=== PATIENT | male | born 1955 | race Caucasian/White ===

== ENCOUNTER → 2019-10-10 14:34 | Outpatient (BNVA) | payer BC, SELFPAY | PROVIDERS: Family Provider Family Medicine; Visit Provider Nurse Practitioner Family | DX: Z11.59 Encounter for screening for other viral diseases (principal); J34.89 Other specified disorders of nose and nasal sinuses; R53.83 Other fatigue | CPT/HCPCS: 87635 ==

== ENCOUNTER 2019-11-24 13:37 | Outpatient (CLI) | payer BC, SELFPAY ==
--- NOTE | 2019-11-24 | USCV_ITS ---
Grady Israel Age: 63 Gender: M : 1955 Exam Date: 11/24/2019 14:18 Ordering Phys: Manohar Cordero M.D ([email or web address]) Technologist: Jeronimo Crane Exam Location: [facility] [place] Indication: CP BP: 130 / 72 HR: 52 Rhythm: Sinus Technical Quality: Adequate MEASUREMENTS (Male / Female) Normal Values 2D ECHO LV Diastolic Diameter PLAX 4.8 cm 4.2 - 5.9 / 3.9 - 5.3 cm LV Systolic Diameter PLAX 2.8 cm IVS Diastolic Thickness 1.5 cm 0.6 - 1.0 / 0.6 - 0.9 cm IVS Systolic Thickness 1.4 cm LVPW Diastolic Thickness 1.4 cm 0.6 - 1.0 / 0.6 - 0.9 cm LVPW Systolic Thickness 1.5 cm LVOT Diameter 2.2 cm LV Ejection Fraction 2D Teich 72.3 % LV Ejection Fraction MOD 2C 70.2 % LV Ejection Fraction 2C AL 68.7 % LA Diameter 4.1 cm LA Width 3.9 cm LA Height 4.0 cm RA Width 3.2 cm RA Height 4.7 cm Aorta at Sinotubular Diameter 1.4 cm M-MODE LV Diastolic Diameter MM 5.6 cm 4.2 - 5.9 / 3.9 - 5.3 cm LV Systolic Diameter MM 3.4 cm LV Ejection Fraction MM Teich 68.4 % IVS Diastolic Thickness MM 1.3 cm 0.6 - 1.0 / 0.6 - 0.9 cm IVS Systolic Thickness MM 2.1 cm LVPW Diastolic Thickness MM 1.1 cm 0.6 - 1.0 / 0.6 - 0.9 cm LVPW Systolic Thickness MM 1.6 cm RV Diastolic Diameter MM 2.2 cm Aortic Annulus Diameter 4.0 cm LA Ao Ratio MM 1.0 DOPPLER AV Peak Velocity 139.0 cm/s LVOT Peak Velocity 117.0 cm/s AV Area Cont Eq vti 3.1 cm squared AV Area Cont Eq pk 3.1 cm squared MV Area PHT 5.0 cm squared Mitral E to A Ratio 1.3 MV E' Velocity 10.0 cm/s Mitral E to MV E' Ratio 9.9 Mitral E to LV E' Lateral Ratio 7.7 Mitral E to LV E' Septal Ratio 13.9 TR Peak Velocity 147.0 cm/s TR Peak Gradient 8.7 mmHg TV Peak E Velocity 80.0 cm/s Right Atrial Pressure 3.0 mmHg Pulmonary Artery Systolic Pressu 11.6 mmHg PV Peak Velocity 113.0 cm/s FINDINGS Left Ventricle Normal left ventricular size, systolic function and wall thickness, with no regional wall motion abnormalities. LVEF is 50-55 %. Normal left ventricular wall thickness. Diastolic dysfunction is present. Right Ventricle The right ventricle is normal in size and function. Right Atrium The right atrium is normal in size. Left Atrium The left atrium is mildly enlarged. Mitral Valve Not well visualized however grossly is normal. There is no mitral regurgitation. Aortic Valve Not well visualized, grossly normal. No significant aortic stenosis. There is no aortic regurgitation. Tricuspid Valve Not well visualized. Insufficient TR jet to calculate RVSP. Pulmonic Valve Not well visualized Pericardium Normal pericardium without effusion. Aorta Normal ascending aorta dimension. CONCLUSIONS LV systolic function is normal with EF of 50 to 55%. Diastolic dysfunction is noted. No significant valvular heart disease. However valves could not be well visualized because of poor quality study. Compared to prior study from 12/21/2017, no significant changes are noted. Manohar Cordero MD (Electronically Signed) Final Date: 28 November 2019 12:10 S
[2019-11-24] MEDS: perflutren protein-a microsphr 0.22 mg/mL SDV 3 mL 2 ML IV (14:53)
== END 2019-11-24 13:38 | disposition home or self-care (01) ==
LOC: US 13:39
PROVIDERS: PCP Family Medicine; Visit Provider Internal Medicine
DX: I50.9 Heart failure, unspecified (principal); R07.9 Chest pain, unspecified; I51.81 Takotsubo syndrome
CPT/HCPCS: C8929; Q9956

== ENCOUNTER 2019-12-23 16:12 | Emergency (ER) | payer BC, SELFPAY ==
[2019-12-23] VITALS (11 sets, daily range): BP systolic 124–163; BP diastolic 79–104; PULSE 72–94; RESP 14–26; TEMP 36.6; O2SAT 96–100; BMI 40.3
--- NOTE | 2019-12-23 17:03 | XRR_ITS ---
PROCEDURE INFORMATION: Exam: XR Right Tibia and Fibula Exam date and time: 12/23/2019 5:15 PM Age: 64 years old Clinical indication: Injury or trauma; Other: Tractor accident; Fracture, traumatic; Open fracture, severity classification not provided; Not specified; Patient HX: Lower ext FX, right ankle deformity; Additional info: Lower ext FX dislocation TECHNIQUE: Imaging protocol: XR Right tibia and fibula. Views: 2 views. COMPARISON: No relevant prior studies available. FINDINGS: Bones/joints: Bimalleolar fracture dislocation of the right ankle. Proximal tibia and proximal fibula appear intact. Soft tissues: There is distal soft tissue swelling. XR/XR tibia fibula RT 2V [id number] IMPRESSION: Bimalleolar fracture dislocation of the right ankle.
--- NOTE | 2019-12-23 17:03 | XRR_ITS ---
PROCEDURE INFORMATION: Exam: XR Right Ankle Exam date and time: 12/23/2019 5:15 PM Age: 64 years old Clinical indication: Injury or trauma; Other: Tractor accident; Fracture, traumatic; Closed fracture; Not specified; Patient HX: FX, right ankle deformity TECHNIQUE: Imaging protocol: XR Right ankle. Views: 3 or more views. COMPARISON: No relevant prior studies available. FINDINGS: Bones/joints: Fracture of the distal shaft of the fibula, with marked displacement/angulation of the distal fragment. Fracture of the medial malleolus of the distal tibia, with complete separation of the tibiotalar articulation. The talus and the calcaneus appear grossly intact as demonstrated. Soft tissues: Unremarkable. XR/XR ankle RT min 3V* [id number] IMPRESSION: Bimalleolar fracture/dislocation of the right ankle.
[2019-12-23] MEDS: ondansetron 2 mg/ML SDV 2 mL 4 MG IVP (17:06)
[2019-12-23] MEDS: morphine 4 mg/mL SDV 1 mL IVP (17:07)
--- NOTE | 2019-12-23 17:09 | W.ED.EXTPRO ---
Documented by User: RYANN Dee 12/23/19 19:16 HPI - Extremity Problem General: Chief complaint: Extremity Injury, Lower Stated complaint: Right leg/tractor accident Time Seen by Provider: 12/23/19 17:00 History of Present Illness: HPI Narrative: patient presents with obvious deformity to right ankle. distal pulses intact. extroversion of foot noted. incident occurred approximately 2 hours before arrival. History of CHF, diabetes mellitus. MD Complaint: extremity pain Onset (ago): hour(s) Review of Systems General: Reports: 10 or more systems reviewed and unremarkable except in HPI and below Musc: Reports: joint pain Physical Exam Const: COMMON NORMALS: no acute distress and patient oriented x3 GENERAL APPEARANCE: cooperative HENMT: COMMON NORMALS: normocephalic and Normal external nose present HEAD & SCALP: normal to inspection and normocephalic NOSE: Normal external nose present Eye: GENERAL EYE: appearance normal, both eyes and all related structures Neck/C-Spine: COMMON NORMALS: full ROM Chest: COMMONS NORMALS: normal inspection of the chest Resp: COMMON NORMALS: normal respiratory effort EFFORT & INSPECTION: Yes able to speak in complete sentences Cardio: COMMON NORMALS: regular rate and regular rhythm RATE: regular rate RHYTHM: regular rhythm GI: COMMON NORMALS: non-tender Back/Pelvis: COMMON NORMALS: thoracic and lumbar spine normal to inspection Extremity: NARRATIVE EXTREMITY EXAM: deformity of right ankle, pulse intact distally. patient reports spasms in leg, Neuro: COMMON NORMALS: patient oriented x3 and moves all extremities Psych: COMMON NORMALS: mental status grossly normal and cooperative Skin: COMMON NORMALS: no rashes or lesions noted GENERAL SKIN EXAM: no rashes or lesions noted Procedures Orthopedic Fracture Reduction Fracture #1: Side: right Fracture Reduction Location: tibia and fibula Analgesia: procedural sedation Technique: direct manipulation Post Reduction X-rays Demonstrate: acceptable reduction Post-reduction neuro exam: intact Post-reduction vascular exam: intact Splint Applied: Yes Patient Tolerated Procedure: well Additional Comments: Dr. Girard present and performed reduction with my assistance, [email or web address] Orthopedic Splinting/Casting Injury #1: Side: right Lower Extremity Injury Location: ankle Lower Extremity Immobilizer: posterior splint and stirrup splint Other Orthopedic Equipment: crutches Course ED course: 1800, reviewed with Dr. Girard whom agreed to reduce and continue care of patient. 185, reduction performed per Dr. Girard and myself under etomidate and versed. 1909, Dr. Girard discussed with Dr. Andres, is to f/u in office Thursday Vital Signs: Vital signs: Vital Signs Temperature 97.9 F 12/23/19 16:38 Pulse Rate 72 12/23/19 19:43 Respiratory Rate 18 12/23/19 19:43 Blood Pressure 129/79 12/23/19 19:43 Pulse Oximetry 96 12/23/19 19:43 MDM - Extremity (Nontraumatic) MDM Narrative: Medical decision making narrative: Patient comes in today for injury to the right ankle. Exam notes obvious deformities extroversion of the ankle. Neurovascular was intact. Differential diagnosis neurovascular compromise, fracture dislocation. X-ray noted a fracture dislocation of the fibula and tibia. Bimalleolar fracture was noted. Dr. Girard was consulted and under conscious sedation we reduce the fracture and splinted. Postreduction x-ray did show improvement in overall positioning. Pulses and neurovascular remains intact. Dr. Girard talk to Dr. Andres who agreed to see patient Thursday Discharge Plan Discharge Patient Disposition: Home Clinical Impression: Ankle fracture Qualifiers: Encounter type: initial encounter Fracture type: closed Laterality: right Qualified Code(s): S82.891A - Other fracture of right lower leg, initial encounter for closed fracture Condition: Stable Prescriptions: New hydrocodone-acetaminophen 10-325 mg tablet 1 tab PO Q6H PRN (Reason: pain (scale score 7-10)) Qty: 14 RF: 0 No Action carvedilol 3.125 mg tablet 3.125 mg PO BID Qty: 90 RF: 3 lisinopril 5 mg tablet 5 mg PO DAILY Qty: 90 RF: 3 spironolactone 25 mg tablet 25 mg PO DAILY Qty: 90 RF: 3 Discharge Orders: Discharge Order (Routine); Ordered 12/23/19 Ordered By: Grady Schwarz Referrals: Fabricio Meraz DO [Primary Care Provider] - Discharge Diet: Usual diet Discharge Activity: Limit activity as instructed and Use walker/crutches as instructed Patient Instructions: Splint Care (ED) Activity Restrictions/Additional Instructions: Follow-up with Dr. Andres on Thursday at the [facility] orthopedic clinic. No weightbearing to the right ankle. Keep splint clean and dry. Use crutches for ambulation. Use acetaminophen and ibuprofen for pain control. Use hydrocodone for breakthrough pain or uncontrolled pain. If you are not unable to control pain at home return to the emergency room for reevaluation. Discharge Date/Time: 12/23/19 19:45 Coding Level of Care Code ED University Administrator for Dee Dee Fwd Exam Comprehensive Documented by User: Colin Girard DO 12/23/19 23:57 HPI - Extremity Problem General: Chief complaint: Extremity Injury, Lower Stated complaint: Right leg/tractor accident Time Seen by Provider: 12/23/19 17:00 Procedures Procedural Sedation Indication: fracture/dislocation reduction ASA Class: II Preparation: panel monitor applied, pulse oximeter, supplemental O2 applied, suction/airway equipment at bedside and IV secured Midazolam: IV Midazolam dose (mg): 2 IV Etomidate dose (mg): 20 Patient Tolerated Procedure: well and no complications Complications: none Course Vital Signs: Vital signs: Vital Signs Temperature 97.9 F 12/23/19 16:38 Pulse Rate 72 12/23/19 19:43 Respiratory Rate 18 12/23/19 19:43 Blood Pressure 129/79 12/23/19 19:43 Pulse Oximetry 96 12/23/19 19:43 MDM - Extremity (Nontraumatic) MDM Narrative: Medical decision making narrative: Patient originally seen by RYANN Sharma. I agree with his history, evaluation, work-up and treatment. Procedural sedation was completed by me as well as assistance with close reduction and splint placement without complication. Spoke with orthopedics. He will see the patient on Thursday Discharge Plan Discharge Patient Disposition: Home Clinical Impression: Ankle fracture Qualifiers: Encounter type: initial encounter Fracture type: closed Laterality: right Qualified Code(s): S82.891A - Other fracture of right lower leg, initial encounter for closed fracture Condition: Stable Prescriptions: New hydrocodone-acetaminophen 10-325 mg tablet 1 tab PO Q6H PRN (Reason: pain (scale score 7-10)) Qty: 14 RF: 0 No Action carvedilol 3.125 mg tablet 3.125 mg PO BID Qty: 90 RF: 3 lisinopril 5 mg tablet 5 mg PO DAILY Qty: 90 RF: 3 spironolactone 25 mg tablet 25 mg PO DAILY Qty: 90 RF: 3 Discharge Orders: Discharge Order (Routine); Ordered 12/23/19 Ordered By: Grady Schwarz Referrals: Fabricio Meraz DO [Primary Care Provider] - Discharge Diet: Usual diet Discharge Activity: Limit activity as instructed and Use walker/crutches as instructed Patient Instructions: Splint Care (ED) Activity Restrictions/Additional Instructions: Follow-up with Dr. Anders on Thursday at the [facility] orthopedic clinic. No weightbearing to the right ankle. Keep splint clean and dry. Use crutches for ambulation. Use acetaminophen and ibuprofen for pain control. Use hydrocodone for breakthrough pain or uncontrolled pain. If you are not unable to control pain at home return to the emergency room for reevaluation. Discharge Date/Time: 12/23/19 19:45 Coding Level of Care Code ED University Administrator for [employer] Fwd Exam Comprehensive
[2019-12-23] MEDS: midazolam 1 mg/mL INJ 2 mL 2 MG IVP (18:40)
--- NOTE | 2019-12-23 18:53 | XRR_ITS ---
PROCEDURE INFORMATION: Exam: XR Right Ankle Exam date and time: 12/23/2019 6:54 PM Age: 64 years old Clinical indication: Injury or trauma; Other: Tractor accident; Fracture, traumatic; Open fracture, severity classification not provided; Ankle; Right; Not specified; Patient HX: Post reduction TECHNIQUE: Imaging protocol: XR Right ankle. Views: 1 or 2 views. COMPARISON: CR XR ankle RT min 3V* [id number] 12/23/2019 5:16 PM FINDINGS: Limitations: Immobilization device overlies the area of interest, obscuring fine detail. Bones/joints: Status post reduction of bimalleolar fracture dislocation, right ankle. Mild, 7 mm residual offset of the fibular fracture fragments noted. Residual 3 mm separation of the medial malleolar fracture fragments. Approximate 10 mm residual anterior to posterior displacement of the tibiotalar articulation. Soft tissues: Soft tissue swelling noted. XR/XR ankle RT 2V [id number] IMPRESSION: 1. Immobilization device overlies the area of interest, obscuring fine detail. 2. Status post reduction of bimalleolar fracture dislocation, right ankle. Significant reduction in fracture fragment displacement when compared to the prior study.
--- NOTE | 2019-12-23 18:58 | PC.NURSE ---
Conscious sedation for Right Ankle reduction: 1837- This RN, Tina Schwarz MILLING OPERATOR and Dr. Girard at bedside for sedation. Time out performed at this time. VS: 124/82, HR73, 99%, R20. Pt on 6L O2 via NC and continuous cardiac monitoring. Consent has been signed by patient. Ambu bag at bedside. 1840- 2mg Versed administered. Pt appears relaxed and pain level is tolerable as reported by patient. VS: 134/83, HR77, 99%, R14 1843- 20mg Etomidate administered. Pt responds well, unarousable shortly after administration. VS: 129/84, HR94, 100%, R26. 1844- R-ankle reduced by Dr. Girard. Skin color remains pink, cap refill<3s, pt retains normal pedal pulse. 1846- Pt appears calm and in no distress. VSS- 148/104, HR82, 97%, R19 1849- Splint applied- Posterior short-leg w/ stirrup. VS 161/104, R18, 98%, HR81 1851-Post Procedure, pt is waking up, appears oriented, able to answer questions appropriately. Denies pain at this time. VS- HR72, 163/87, 99%, R16 1853- O2 turned down from 6L to 4L. Pt a/ox4 and has returned to a pre-procedure level of sedation. This RN brings pt spouse back into room. Pt denies pain and reports no need for pain medication at this time. He sts his ankle feels better. End of sedation documentation.
[2019-12-23] MEDS: fentaNYL 50 mcg/mL INJ 2mL 100 MCG IVP (19:20)
--- NOTE | 2019-12-26 10:14 | DCPLANNER ---
field insurance sales manager had message to schedule a follow up appointment for patient with Dr. Andres, with ortho. field insurance sales manager called the ortho clinic, spoke with Pat, gave clinic patients information. A follow up appointment was scheduled for Thursday, December 26, 2019 at 2:[address] Andres. Clinic will call patient with appointment information.
--- NOTE | 2019-12-29 15:22 | DCPLANNER ---
Patient had a follow up appointment scheduled for 12.26.19 with ortho - patient did attend appointment.
== END 2019-12-23 19:45 | disposition home or self-care (01) ==
PROVIDERS: Emergency Provider Emergency Medicine; PCP Family Medicine
DX: S82.891A Other fracture of right lower leg, initial encounter for closed fracture (principal); S82.841A Displaced bimalleolar fracture of right lower leg, initial encounter for closed fracture; I50.9 Heart failure, unspecified; E11.9 Type 2 diabetes mellitus without complications; X58.XXXA Exposure to other specified factors, initial encounter
CPT/HCPCS: 12345; 27810; 73590; 73600; 73610; 96374; 96375; 99282; 99284; J2250; J2270; J2405; J3010; J3490

== ENCOUNTER → 2019-12-26 16:18 | Outpatient (BNVA) | payer BC, SELFPAY | PROVIDERS: PCP Family Medicine; Visit Provider Orthopaedic Surgery | DX: Z11.59 Encounter for screening for other viral diseases (principal) | CPT/HCPCS: 87635 ==

== ENCOUNTER 2019-12-28 08:44 | Day surgery (SDC) | payer BC, SELFPAY ==
[2019-12-27 08:45] VITALS: BMI 39.9
[2019-12-28] VITALS (7 sets, daily range): BP systolic 112–142; BP diastolic 62–91; PULSE 60–75; RESP 16–18; TEMP 36.4–37; O2SAT 93–99
--- NOTE | 2019-12-28 | XR_ITS ---
WS: [id number] Exam: XR ankle RT min 3V* [id number] Date/Time of Exam: 12/28/2019 12:00 AM Reason For Exam: ORIF Right Ankle Comparison 12/23/2019. AP and lateral postoperative C-arm images of the right ankle are provided for evaluation. 2. Screws stabilize a fracture of the medial malleolus in anatomic alignment. There is also plate and screw fixation involving a fracture of the lower fibula which is in excellent position for healing. There is a cable fixation of the lower fibula and tibia. The ankle mortise is been restored since pre vious exam. XR/XR ankle RT min 3V* [id number] IMPRESSION: 1. Satisfactory internal orthopedic fixation involving fractures of the medial malleolus and the lower fibula as noted above.
--- NOTE | 2019-12-28 | SCC_ITS ---
Procedure Done: ORIF Bimalleolar ankle on right with repair of sydesmotic injury 54.6 seconds of fluoroscopic guidance, for a cumulative dose of 1.59 mGy, was provided to Dr. Andres by the radiology department. C-arm images of the RIGHT ankle were saved for the patient's permanent record. ABRAN
[2019-12-28 09:35] LABS: Glucose Point of Care 108 mg/dL (70-110)
[2019-12-28] MEDS: sodium chloride 0.9% 1,000 ML 30 ML IV (09:43)
--- NOTE | 2019-12-28 09:51 | ANES.PREANE2 ---
Pre-Anesthetic Assessment Pre-Anesthetic Assessment: Height/Weight: Height 1.73 m Weight 119.295 kg Temp Pulse Resp BP Pulse Ox 97.8 F 75 18 142/91 97 12/28/19 09:09 12/28/19 09:09 12/28/19 09:09 12/28/19 09:09 12/28/19 09:09 Preop Diagnosis: Right ankle fractur Proposed Procedure: Operation Date: 12/28/19 10:45 Proposed Procedures p ORIF Ankle 79650 0232T T14.8XXA(Right) - Zachery Andres, DO Familial anesthetic complications: I'm really sensitive, i get lighted headed and passed out,but aiyana done fine since Was Beta Karly taken within 24 hours: Yes Last intake: Intake Last Liquid Date 12/27/19 Last Liquid Time 23:00 Last Solid Date 12/27/19 Last Solid Time 17:00 Social: Social History: No alcohol and No tobacco Exam: Pre-Anes Outpt Exam: alert, oriented x 3, clear to auscultation bilaterally and regular rate & rhythm Airway: Cervical ROM: WNL MP: 3 Dentition: Chipped Pulmonary: Pulmonary: Sleep apnea (cpap) and SOB CV/HEM: CV/HEM: CHF (d/t DM) and HTN Hepatic: Comments: fatty liver GI: GI: GERD Metabolic: Metabolic: DM and Morbid obesity Anesthetic Plan: ASA status: 3 Anesthesia: General and Regional (specify below) Risk of > 500 ml blood loss (7ml/kg in children): No Meds/Allergies Current Medications: Current Medications Generic Name Dose Route Start Last Admin Trade Name Freq PRN Reason Stop Dose Admin Sodium Chloride 1,000 mls @ 30 ml s/hr 12/28/19 08:00 12/28/19 09:43 Sodium Chloride 0.9% IV 12/29/19 07:59 30 mls/hr .Q24H ISRA Administration Data Anesthesia Other Labs: Laboratory Results - last 48 hr 12/28/19 09:32 POC Glucose 108 Cardiac Studies: Echocardiogram 11/24/19
[2019-12-28] MEDS: midazolam 1 mg/mL INJ 2 mL 2 MG IVP (10:26)
--- NOTE | 2019-12-28 11:05 | W.PM.OPSUD ---
Surgery/Procedure H&P Update DATE OF PROCEDURE: December 28, 2019 DATE H&P PERFORMED: 12/26/19 H&P UPDATE INFORMATION: I have reviewed H&P completed within last 30 days, I have examined patient prior to procedure and No changes to prior documentation PREOP DIAGNOSIS: Right ankle fractur PLANNED PROCEDURE: Operation Date: 12/28/19 10:45 Proposed Procedures p ORIF Ankle 74951 0232T T14.8XXA(Right) - Zachery Andres DO
--- NOTE | 2019-12-28 11:32 | ANES.PROC ---
Anesthesia Procedures Procedure/Date: 12/28/19 Nerve Block ^: Nerve Block 1: Main Anesthesia: general anesthesia Time Out Performed: Yes Consent: requested by attending/covering physician, from patient, from other, risks and benefits reviewed and patient agrees to proceed Nerve block location: popliteal (R) Anesthesia monitors applied: pulse oximetry, EKG, BP cuff and oxygen Nerve block position: supine Anesthetic Used: ropivicaine 0.5% and with decadron (4 mg) Amount of anesthesia used (mL): 30 Ultrasound used to: recognize landmarks Nerve Stimulator Used?: No Interscalene/Femoral BLK: 4 stimuplex 21 g needle used for position and inplane approach, visualize local anesthetic spread and no vascular puncture identified Injection: neg aspiration of heme Patient Tolerated Procedure: well and no complications Complications: none
--- NOTE | 2019-12-28 12:54 | SUR.PHASEI ---
PT IS AWAKE ALERT ON RA WITH GOOD RESP NOTED PT RT FOOT ELEVATED WITH BED DISTAL TOES PINK WARM WITH CAP REFILL LESS THAN 3 SECONDS, SOFT DRESSING D/I
--- NOTE | 2019-12-28 12:55 | PM.OP ---
Operative Report Date of procedure: December 28, 2019 Pre-op Diagnosis: Right ankle fractur Post-op diagnosis: same Procedure Done: ORIF Bimalleolar ankle on right with repair of sydesmotic injury Implants: Arthrex Surgeon: Zachery Andres Anesthesia: General Estimated blood loss (mL): 20 Tourniquet time (min): 45 Condition: stable Disposition: PACU Procedure: Patient was brought to the operative suite placed in supine position all areas of impingement were well-padded. Patient was prepped and draped normal sterile fashion skin incision was made over the right lateral malleolus open to the previous shaft. Fracture was identified and reduced. A 7 hole Arthrex plate was placed. 2 screws were placed distally 3 screws proximally. Next attention was brought to the medial side skins was made fracture was reduced and a [id number] reduction clamp was used to reduce the fracture and then 2 cannulated screws from Arthrex were placed to hold the fracture reduced on the medial malleolus. Was brought to place and the tight rope drill was used to pass through the fibula into the tibia through the syndesmosis this was reduced first prior to placing this and then a tight rope was placed from lateral to medial locking the syndesmosis in place AP mortise and lateral views of the ankle were taken showed adequate position of the hardware and the fracture. The wounds were irrigated and closed with Vicryl and nylon suture sterile dressings were applied patient was placed in a posterior splint transferred to the PACU in stable condition
--- NOTE | 2019-12-28 13:49 | ANE.PACU2 ---
Inpatient post-anesthesia follow up: Airway intact: Yes Vital signs: Temperature 97.8 F Pulse Rate 75 Respiratory Rate 18 Blood Pressure 130/76 Pulse Oximetry 96 Oxygen Delivery Me thod Room Air Oxygen Flow Rate Fraction of Inspir ed Oxygen Hydration adequate: Yes Nausea and vomiting: No Pain level: 1 Mental status: Baseline
== END 2019-12-28 13:57 | disposition home or self-care (01) ==
PROVIDERS: PCP Family Medicine; Visit Provider Orthopaedic Surgery
PROC: (CPT 27829; principal; 2019-12-28 10:45)
DX: S82.841A Displaced bimalleolar fracture of right lower leg, initial encounter for closed fracture (principal); X58.XXXA Exposure to other specified factors, initial encounter; G47.30 Sleep apnea, unspecified; I11.0 Hypertensive heart disease with heart failure; I50.9 Heart failure, unspecified; K21.9 Gastro-esophageal reflux disease without esophagitis; E11.9 Type 2 diabetes mellitus without complications; E66.01 Morbid (severe) obesity due to excess calories; Z68.41 Body mass index [BMI] 40.0-44.9, adult
CPT/HCPCS: 27829; 12345; 36416; 64450; 73610; 76000; 76942; 82962; 96374; C1713; J0330; J0690; J1100; J2250; J2405; J2704; J2795; J3010; J3490; J7030

== ENCOUNTER → 2020-02-10 09:57 | Outpatient (BNVA) | payer BC, SELFPAY | PROVIDERS: PCP Family Medicine; Visit Provider Orthopaedic Surgery | DX: S82.841A Displaced bimalleolar fracture of right lower leg, initial encounter for closed fracture (principal); X58.XXXA Exposure to other specified factors, initial encounter | CPT/HCPCS: 73610 ==

== ENCOUNTER 2020-02-13 06:00 | Outpatient (RCR) | payer BC, SELFPAY | END 2020-03-01 23:59 | disposition home or self-care (01) | LOC: WPT 06:00 | PROVIDERS: PCP Family Medicine; Referring Provider Orthopaedic Surgery; Visit Provider Orthopaedic Surgery | DX: S82.891D Other fracture of right lower leg, subsequent encounter for closed fracture with routine healing (principal); X58.XXXD Exposure to other specified factors, subsequent encounter | CPT/HCPCS: 97110; 97140; 97162 ==

== ENCOUNTER 2020-03-02 06:00 | Outpatient (RCR) | payer BC, SELFPAY | END 2020-04-01 23:59 | disposition home or self-care (01) | LOC: WPT 06:00 | PROVIDERS: PCP Family Medicine; Referring Provider Orthopaedic Surgery; Visit Provider Orthopaedic Surgery | DX: S82.891D Other fracture of right lower leg, subsequent encounter for closed fracture with routine healing (principal); X58.XXXD Exposure to other specified factors, subsequent encounter | CPT/HCPCS: 97110; 97140 ==

== ENCOUNTER → 2020-03-13 11:37 | Outpatient (BNVA) | payer BC, SELFPAY | PROVIDERS: PCP Family Medicine; Visit Provider Orthopaedic Surgery | DX: Z48.89 Encounter for other specified surgical aftercare (principal); S82.843A Displaced bimalleolar fracture of unspecified lower leg, initial encounter for closed fracture; X58.XXXA Exposure to other specified factors, initial encounter | CPT/HCPCS: 73610 ==

== ENCOUNTER → 2020-04-24 11:01 | Outpatient (BNVA) | payer BC, SELFPAY | PROVIDERS: PCP Family Medicine; Visit Provider Orthopaedic Surgery | DX: Z48.89 Encounter for other specified surgical aftercare (principal) | CPT/HCPCS: 73610 ==

== ENCOUNTER → 2021-11-05 16:04 | Outpatient (BNVA) | payer BC, SELFPAY | PROVIDERS: PCP Family Medicine; Visit Provider Nurse Practitioner | DX: N39.0 Urinary tract infection, site not specified (principal) | CPT/HCPCS: 81000 ==

== ENCOUNTER → 2021-11-12 13:25 | Outpatient (BNVA) | payer BC, SELFPAY | PROVIDERS: PCP Family Medicine; Visit Provider Nurse Practitioner | DX: N39.0 Urinary tract infection, site not specified (principal); R30.0 Dysuria | CPT/HCPCS: 81000; 87086 ==

== ENCOUNTER → 2021-11-25 10:49 | Outpatient (BNVA) | payer BC, SELFPAY | PROVIDERS: PCP Family Medicine; Visit Provider Nurse Practitioner | DX: R30.0 Dysuria (principal); N39.0 Urinary tract infection, site not specified | CPT/HCPCS: 81000; 87086 ==

== ENCOUNTER → 2022-01-17 10:33 | Outpatient (BNVA) | payer BC, SELFPAY | PROVIDERS: PCP Family Medicine; Visit Provider Family Medicine | DX: E11.9 Type 2 diabetes mellitus without complications (principal); I10 Essential (primary) hypertension; B35.1 Tinea unguium; M25.569 Pain in unspecified knee; M19.90 Unspecified osteoarthritis, unspecified site; I42.8 Other cardiomyopathies; I50.9 Heart failure, unspecified | CPT/HCPCS: 80053; 80061; 82607; 83036 ==

== ENCOUNTER → 2022-01-28 14:10 | Outpatient (BNVA) | payer BC, SELFPAY | PROVIDERS: PCP Family Medicine; Visit Provider Nurse Practitioner | DX: R05.9 Cough, unspecified (principal); J01.90 Acute sinusitis, unspecified; B96.89 Other specified bacterial agents as the cause of diseases classified elsewhere | CPT/HCPCS: 87400 ==

== ENCOUNTER → 2022-10-28 11:28 | Outpatient (BNVA) | payer SELFPAY | PROVIDERS: PCP Family Medicine; Visit Provider Nurse Practitioner Family | DX: T17.908A Unspecified foreign body in respiratory tract, part unspecified causing other injury, initial encounter (principal); X58.XXXA Exposure to other specified factors, initial encounter | CPT/HCPCS: 71046 ==

== ENCOUNTER → 2023-01-01 14:57 | Outpatient (BNVA) | payer MEDICARE, OTHER, SELFPAY | PROVIDERS: PCP Family Medicine; Visit Provider Nurse Practitioner Family | DX: I50.9 Heart failure, unspecified (principal); D64.9 Anemia, unspecified; E55.9 Vitamin D deficiency, unspecified; E11.9 Type 2 diabetes mellitus without complications; R68.89 Other general symptoms and signs; Z12.5 Encounter for screening for malignant neoplasm of prostate; R53.83 Other fatigue; I10 Essential (primary) hypertension; Z87.898 Personal history of other specified conditions | CPT/HCPCS: 80053; 80061; 81003; 82306; 82728; 83036; 83550; 83880; 84443; 85025; 87400; 87426; G0103; G0328 ==

== ENCOUNTER → 2023-01-07 08:55 | Outpatient (BNVA) | payer MEDICARE, OTHER, SELFPAY | PROVIDERS: PCP Family Medicine; Visit Provider Nurse Practitioner Family | DX: R74.8 Abnormal levels of other serum enzymes (principal); E11.9 Type 2 diabetes mellitus without complications; E55.9 Vitamin D deficiency, unspecified | CPT/HCPCS: 80053 ==

== ENCOUNTER → 2023-02-03 11:54 | Outpatient (BNVA) | payer MEDICARE, OTHER, SELFPAY | PROVIDERS: PCP Family Medicine; Visit Provider Internal Medicine Cardiovascular Disease | DX: I42.8 Other cardiomyopathies (principal); I11.0 Hypertensive heart disease with heart failure; I50.9 Heart failure, unspecified; E11.9 Type 2 diabetes mellitus without complications | CPT/HCPCS: 99213 ==

== ENCOUNTER → 2023-02-20 13:13 | Outpatient (BNVA) | payer MEDICARE, OTHER, SELFPAY | PROVIDERS: PCP Family Medicine; Visit Provider Nurse Practitioner Family | DX: N39.0 Urinary tract infection, site not specified (principal) | CPT/HCPCS: 81000 ==

== ENCOUNTER → 2023-03-05 15:08 | Outpatient (BNVA) | payer MEDICARE, OTHER, SELFPAY | PROVIDERS: PCP Family Medicine; Visit Provider Nurse Practitioner Family | DX: N39.0 Urinary tract infection, site not specified (principal) | CPT/HCPCS: 81003; 87086 ==

== ENCOUNTER → 2024-02-04 13:50 | Outpatient (BNVA) | payer MEDICARE, OTHER, SELFPAY | PROVIDERS: PCP Family Medicine; Visit Provider Internal Medicine | DX: I11.0 Hypertensive heart disease with heart failure (principal); I50.9 Heart failure, unspecified; R53.1 Weakness; R42 Dizziness and giddiness; I42.8 Other cardiomyopathies; E11.9 Type 2 diabetes mellitus without complications; E55.9 Vitamin D deficiency, unspecified; R74.8 Abnormal levels of other serum enzymes; M19.90 Unspecified osteoarthritis, unspecified site; M25.50 Pain in unspecified joint | CPT/HCPCS: 80053; 80061; 82607; 82652; 83036; 85025; 85651; 86038; 86140; 86431; 99214 ==

== ENCOUNTER → 2024-08-23 13:00 | Outpatient (BNVA) | payer MEDICARE, OTHER, SELFPAY | PROVIDERS: PCP Family Medicine; Visit Provider Family Medicine | DX: I10 Essential (primary) hypertension (principal); E11.9 Type 2 diabetes mellitus without complications; E55.9 Vitamin D deficiency, unspecified; R74.8 Abnormal levels of other serum enzymes; D64.9 Anemia, unspecified; M19.90 Unspecified osteoarthritis, unspecified site | CPT/HCPCS: 80053; 80061; 82306; 82607; 83036; 85025 ==

== ENCOUNTER → 2025-02-02 13:08 | Outpatient (BNVA) | payer MEDICARE, OTHER, SELFPAY | PROVIDERS: PCP Family Medicine; Visit Provider Internal Medicine | DX: I11.0 Hypertensive heart disease with heart failure (principal); I50.9 Heart failure, unspecified; R53.1 Weakness; R42 Dizziness and giddiness; I42.8 Other cardiomyopathies; E11.9 Type 2 diabetes mellitus without complications | CPT/HCPCS: 36415; 80053; 83880; 99214 ==

== ENCOUNTER 2025-02-10 06:03 | Outpatient (CLI) | payer MEDICARE, OTHER, SELFPAY ==
--- NOTE | 2025-02-10 | ECG_ITS ---
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 Interpretive Statements Procedure: A total of 0.4 mg of Lexiscan was infused over 20 seconds. The stress phase was continued for a total of 5 minutes. Sestamibi was injected 20 seconds after the Lexiscan infusion. Findings:The patient's baseline blood pressure was 137/72 mmHg with a heart rate 65 bpm. Baseline EKG showed normal sinus rhythm with and intraventricular conduction delay. After Lexiscan was injected there was no significant change in heart rate or blood pressure. The patient developed no symptoms of angina. There were no ST or T wave changes. There were no arrhythmias. Conclusion: 1. Stress EKG with no evidence of inducible ischemia though limited in diagnostic sensitivity due to intraventricular conduction delay 2. No Lexiscan induced chest pain or cardiac arrhythmia. 3. Normal blood pressure and heart rate response. 4. Nuclear myocardial perfusion scan pending; see separate report. Electronically Signed On 02-10-2025 18:42:09 LAUNDRY [employer]Y CLEANERS COUNTER CLERK by Vazquez Cardenas M.D. [email or web address]
--- NOTE | 2025-02-10 06:15 | USCV_ITS ---
Lindy Grady Age: 69 Gender: M : 1955 Exam Date: 02/10/2025 06:35 Ordering Phys: Manohar Cordero M.D ([email or web address]) Technologist: Wes Mathew [place] [facility] [place]: chest pain, sob BP: 144 / 94 HR: 67 Rhythm: Sinus Technical Quality: Adequate MEASUREMENTS (Male / Female) Normal Values 2D ECHO LV Diastolic Diameter PLAX 5.9 cm 4.2 - 5.9 / 3.9 - 5.3 cm IVS Diastolic Thickness 1.0 cm 0.6 - 1.0 / 0.6 - 0.9 cm IVS Systolic Thickness 1.5 cm LVPW Diastolic Thickness 0.8 cm 0.6 - 1.0 / 0.6 - 0.9 cm LVPW Systolic Thickness 1.5 cm LVOT Diameter 2.1 cm LV Ejection Fraction 2D Teich 56.3 % LV Ejection Fraction MOD 4C 50.8 % LV Ejection Fraction MOD 2C 49.8 % LV Ejection Fraction 2C AL 51.0 % LA Diameter 4.7 cm RA Systolic Volume 4C AL 39.8 ml RA Systolic Volume 4C MOD 33.3 ml LA Sys Volume AL 54.6 cm cubed LA Sys Volume Index AL 20.1 cm cubed/m squared Aorta at Sinotubular Diameter 2.4 cm IVC Diameter 1.6 cm M-MODE LA Ao Ratio MM 1.0 AV Cusp Separation MM 1.5 cm DOPPLER AV Peak Velocity 124.0 cm/s LVOT Peak Velocity 89.0 cm/s AV Area Cont Eq vti 2.8 cm squared AV Area Cont Eq pk 2.4 cm squared MV Peak Velocity 93.0 cm/s MV Area PHT 6.1 cm squared Mitral E to A Ratio 0.7 PV Peak Velocity 114.8 cm/s RV Ejection Time 0.3 s FINDINGS Left Ventricle Normal left ventricular size, systolic function and wall thickness, with no regional wall motion abnormalities. Left ventricular ejection fraction is estimated at 60 %. Grade I/IV diastolic dysfunction (abnormal relaxation filling pattern), normal to mildly elevated filling pressures. Right Ventricle Normal right ventricular size and systolic function. Right Atrium Normal right atrial size. Left Atrium Normal left atrial size. IA Septum Normal appearance of the interatrial septum. Mitral Valve Normal mitral valve structure. No mitral valve stenosis or regurgitation. Aortic Valve Normal aortic valve structure. No aortic valve stenosis or regurgitation. Tricuspid Valve Normal tricuspid valve structure. No tricuspid valve stenosis or regurgitation. Normal pulmonary pressure. Pulmonic Valve Normal pulmonic valve structure. No pulmonic valve stenosis or regurgitation. Pericardium No pericardial effusion. Aorta Normal diameter of the aortic root and ascending thoracic aorta. IVC Normal IVC diameter. CONCLUSIONS abnormalities. Left ventricular ejection fraction is estimated at 60 %. Grade I/IV diastolic dysfunction (abnormal relaxation filling pattern), normal to mildly elevated filling pressures. No significant valvular abnormalities. There is no pericardial effusion. Right atrial pressure is around 5 mm of mercury. Janna Recio MD (Electronically Signed) Final Date: 17 February 2025 10:17 S
--- NOTE | 2025-02-10 06:25 | NMCV_ITS ---
NM félix perf SPECT r/s* [id number] Grady [place] Age: 69 Gender: M : 1955 Exam Date: 02/10/2025 07:53 Ordering Phys: Manohar Cordero M.D ([email or web address]) Technologist: LUISA Presley Exam Location: [facility] Indications: CP STRESS TEST [facility] IMAGE PROTOCOL Rest/Stress 1 Lexiscan Day Radiopharmaceutical Dose (mCi) Administration Site Administered by Rest: Tc-99m 10.6 IV LUISA Presley Sestamibi Stress:Tc-99m 33 IV Shahida Johnson, [employer] REPRESENTATIVE Sestamibi Rest: 10-Feb-2025 60 Discovery 630 Stress: 10-Feb-2025 Discovery 630 0.4mg Lexiscan. Supine position only as patient was unable to lay prone. SPECT RESULTS Technical Quality: Poor Raw Data Analysis: Normal Image Corrections: No attenuation or motion correction applied Summed Stress Score: 12 Summed Rest Score: 2 Summed Difference Score: 10 PERFUSION FINDINGS Myocardial perfusion imaging with decreased quality due to technical difficulty. There is a medium sized area of severely reduced tracer counts in the apical cap, apical and mid inferior and apical and mid anteroseptal wall segments that is predominantly reversible on the resting images. FUNCTIONAL RESULTS (calculated via Gated SPECT) Stress Image LV EF (%): 52 Stress EDV (mL):173 TID: 1.18 Stress ESV (mL):83 FUNCTIONAL FINDINGS: There is mild left ventricular enlargement at rest. There is hypokinesis of the apical septum with borderline decreased global left ventricular systolic function with an ejection fraction of 52%. IMPRESSIONS 1. Small apical inferior infarction with a medium sized area of moderate anna- infarct ischemia. 2. Mild left ventricular enlargement with apical hypokinesis. Borderline decreased global left ventricular systolic function with an ejection fraction of 52%. Vazquez Cardenas MD, FACC (Electronically Signed) Final Date: 10 February 2025 16:46 S
[2025-02-10 08:41] VITALS: BP 147/81; PULSE 72; BMI 48.0
== END 2025-02-10 06:04 | disposition home or self-care (01) ==
LOC: RAD 06:16 → CDL 06:47
PROVIDERS: PCP Family Medicine; Visit Provider Internal Medicine
DX: R07.9 Chest pain, unspecified (principal); R06.02 Shortness of breath; I51.89 Other ill-defined heart diseases; I51.7 Cardiomegaly; R94.39 Abnormal result of other cardiovascular function study; I49.8 Other specified cardiac arrhythmias; I45.4 Nonspecific intraventricular block
CPT/HCPCS: 36415; 78452; 93017; 93306; 96374; A9500; J2785; J9999

== ENCOUNTER 2025-02-21 05:34 | Outpatient (CLI) | payer MEDICARE, OTHER, SELFPAY ==
[2025-02-21] VITALS (21 sets, daily range): BP systolic 132–160; BP diastolic 73–100; PULSE 60–75; RESP 12–24; TEMP 37.1; O2SAT 92–98; BMI 48.4
--- NOTE | 2025-02-21 06:00 | XACV_ITS ---
Exam Room: 2 Ht: 173 cm Wt: 145 kg BSA: 2.71 m2 Gender: Male : 1955 Any Known Allergies: Other Exam Priority: Routine Procedure(s): Procedure Description: Diagnostic procedure Procedure Description: Left Heart Catheterization Procedure Description: Left ventriculography Procedure Description: Coronary Angiography Diagnostic Cath Status: Elective Diagnostic Findings * INDICATION: Chest pain/abnormal stress test. * No significant disease noted in the Left Main, Left Anterior Descending, Right, or Circumflex coronary arteries. * Coronary angiography shows right dominance. Conclusions 1. No significant disease noted in the Left Main, Left Anterior Descending, Right, or Circumflex coronary arteries. 2. Normal left ventricular systolic function. Ejection fraction of 50%. Recommendations * Aggressive risk factor modification. * Outpatient cardiology follow up in 2 weeks. Interventional RX Recommendation: medical therapy and/or counseling Diagnostic RX Recommendation: medical therapy and/or counseling Anticoagulation: Heparin Ventriculography Ejection Fraction: 50.0 % Pressures Phase:Rest AO : 142 / 91 ( 111 ) @ 9:01:00 AM 151 / 86 ( 110 ) @ 9:01:00 AM 148 / 79 ( 107 ) @ 9:09:00 AM LV : 141 / -6 / 15 @ 9:00:00 AM 151 / -3 / 17 @ 9:01:00 AM 154 / 4 / 23 @ 9:07:00 AM 153 / 3 / 27 @ 9:09:00 AM 139 / 4 / 25 @ 9:09:00 AM Valves Phase:DefaultPhase AV : 0.0 @ 9:14:05 AM AV Mean Gradient: 0.0 @ 9:14:05 AM Clinical Evaluation EBL: 5mL-10mL Procedural Details Procedure Consent Obtained. Admit Source: Out Patient. Pre-Procedure Time Out. Identified patient by full name and date of as verbalized by the patient/guarantor. Does the consent match the physician's order: Yes. Accurate & Complete Informed Consent: Yes. Inpatient/Outpatient History & Physical on Chart: Yes. If H&P is completed, is and addenduem needed: No; If yes, is the addendum complete: N/A. Visualize and Verify Site with Patient/Guarantor: N/A. Relevant Radiology Images available: Yes. The risks, benefits, and alternatives of sedation and/or procedure were discussed by physician. The patient agrees to continue. Procedure started. [facility] Clinical Fraility Score: 4: Vulnerable. Online Education Manager Indications: Worsening Angina. Chest Pain Symptom Assessment: Typical Angina Symptoms. Correct patient, site and procedure confirmed by cath team. Current diagnosis: Chest Pain, Abnormal stress test. PERRLA. Strong, equal hand field interviewer bilaterally. Lungs clear x 5 lobes. IV Site on Arrival: 20 gauge in the left anticubital. IV Fluids: 0.9% NaCl at KVO. 0 mL infused prior to cath lab radiological technologist. Pre Procedural Pulses: bilateral radial was 3+. Pre Procedural Pulses: bilateral dorsalis pedis was Doppled. Pre Procedural Pulses: bilateral posterior tibial was Doppled. Oxygen started at 2liters/min via nasal canula. right radial was prepped with chloroprep then draped in the usual sterile fashion. right groin was prepped with chloroprep then draped in the usual sterile fashion. Baseline sample Acquired. HR: 63 BPM. Physician notified. Physician arrived. Physician scrubbed in. Immediate Pre-Procedure Time Out. Correct Patient: Yes; Correct Procedure: Yes; Correct Site: Yes; Correct Patient Position: Yes; Correct Supplies: Yes; Dried Flammable Prep: Yes; Blood Products Available: No;. Lidocaine 1% infiltrated to the right radial. Arterial access obtained. A 5 setswana TIG catheter in over wire. EDP Sample taken: LV 141/-6,15; HR: 69 BPM; SpO2: 97%. Pullback taken: LV 151/-4,17; AO 142/91(111); Mean: 14mmHg, Peak to Peak: 8mmHg, SEP: 18sec/min; HR: 68 BPM; SpO2: 97%. Multiple views taken of left coronary artery. Catheter redirected to the RCA. Multiple views taken of right coronary artery. Catheter removed over the exchange wire. A 5 setswana Angled Pig catheter in over wire. EDP Sample taken: LV 154/4,23; HR: 66 BPM; SpO2: 97%. LV gram performed in [place] @ 10 mL/second for a total of 30 mL. EDP Sample taken: LV 153/3,27; HR: 63 BPM; SpO2: 98%. Pullback taken: LV 139/4,25; AO 148/79(107); Mean: 0mmHg, Peak to Peak: 0mmHg, SEP: 7sec/min; HR: 66 BPM; SpO2: 98%. Catheter removed over the exchange wire. A TR Band was successful obtaining hemostatsis at the Right Radial artery insertion site. Post Procedure: Pulses reassessed and unchanged. PERRLA. Strong, equal hand field interviewer bilaterally. No VTE prophylaxis required. Medication's Wasted: Lidocaine 1% = 18 mL. Medication's Wasted: Nitro = 49.8 mg. Medication's Wasted: Heparin = 1000 unit. Medication's Wasted: Other = Versed 1 mg. Medication's Wasted: Other = Fentanyl 50mcg. Total IV fluids: 50 mL. 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 Complications: None. Estimated blood loss: 5mL-10mL. Responsiveness - Normal response to verbal stimuli; alert and oriented, PERRLA. Airway - Unaffected, no intervention required; spontaneous ventilation. Circulation: W/N/L, pulses unchanged. Nausea/Vomiting: No. Procedure completed. Patient transferred by wheelchair to CPRU. Vital chart was stopped. Access Site Site: Right Radial artery Sheath Size: 6 Fr Hemostasis Method: TR Band Hemostasis Success: Successful Procedure Medications Start: 8:52 AM Stop: 8:52 AM Medication: Versed Amount: 1 mg Route: I.V. Start: 8:52 AM Stop: 8:52 AM Medication: Fentanyl Amount: 50 mcg Route: I.V. Start: 8:59 AM Stop: 8:59 AM Medication: Nitrogylcerin Amount: 200 mcg Route: I.A. Start: 9:00 AM Stop: 9:00 AM Medication: Heparin Amount: 5000 units Route: I.V. I, the attending physician, have reviewed and verified all procedure medications. Yes, all medications given per verbal order History/Risk Factors Hypertension: Yes Dyslipidemia: No Peripheral Arterial Disease (PAD): No Myocardial Infarction ([place]): No Obesity: Yes Renal Disease: No Prior Interventions PCI: No CABG: No Valve Surgery: No Report Signatures Finalized by Manohar Cordero MD on 03/11/2025 11:35 AM
[2025-02-21 06:25] LABS: Hematocrit 43.1 % (37-53); Hemoglobin 14.60 g/dL (11.27-16.99); Mean Corpuscular HGB Conc 33.9 g/dL (30-55); Mean Corpuscular Hemoglobin 31.0 pg (27-33); Mean Corpuscular Volume 91.5 fl (82-101); Nucleated Red Blood Cells % 0 %; Platelet Count 217 10^3/cmm (157-399); Red Blood Count 4.71 10^6/uL (3.85-5.65); White Blood Count 8.23 10^3/uL (3.29-11.43)
[2025-02-21 06:39] LABS: Anion Gap 14.0 (5-19); Blood Urea Nitrogen 22 mg/dL (8-23); Calcium 9.2 mg/dL (8.5-10.5); Carbon Dioxide 26 mmol/L (22-29); Chloride 103 mmol/L (98-107); Glucose 143 mg/dL (65-115); Osmolality Calculated 294 mOsm/kg (285-295); Potassium 4.0 mmol/L (3.5-5.1); Sodium 139 mmol/L (136-145)
--- NOTE | 2025-02-21 08:28 | W.PM.OPSUD ---
Surgery/Procedure H&P Update DATE OF PROCEDURE: February 21, 2025 DATE H&P PERFORMED: 02/02/25 H&P UPDATE INFORMATION: I have reviewed H&P completed within last 30 days, I have examined patient prior to procedure and Changes to prior documentation as noted here PREOP DIAGNOSIS: Chest pain/ abnormal stress test PRIMARY INDICATION FOR PROCEDURE: Chest pain/ abnormal stress test PLANNED PROCEDURE: Operation Date: 02/21/25 07:00 Proposed Procedures p C w/wo LV & Coros(Left) - Manohar Cordero M.D Possible percutaneous coronary intervention PATIENT REASSESSED PRIOR TO SEDATION, WITH NO CHANGE NOTED: Yes PHYSICAL EXAM: alert, oriented x 3, clear to auscultation bilaterally and regular rate & rhythm AIRWAY EVAL/ANESTHESIA PLAN: normal airway, ASA III, Local Anesthesia, Risks, benefits & alternatives of sedation and/or procedure discussed and Patient agrees to continue as planned ADDITIONAL INFORMATION: Moderate sedation
--- NOTE | 2025-02-21 09:15 | PM.PROC ---
Procedure Note: Date of procedure: 02/21/25 Pre-procedure diagnosis: Chest pain/abnormal stress test Post-procedure diagnosis: other (Non-obstructive coronary artery disease) Procedure: Patent coronary arteries Medical therapy Performing Provider: Manohar Cordero Complications: None Condition: stable Disposition: same day Coding Level of Care Code Acute Code for Dee Dee Thomson
--- NOTE | 2025-02-21 11:28 | PC.NURSE ---
TR band off @ 1129. no bleeding or hematoma noted at this time.
== END 2025-02-21 12:38 | disposition home or self-care (01) ==
PROVIDERS: PCP Family Medicine; Visit Provider Internal Medicine
DX: R07.9 Chest pain, unspecified (principal); R94.39 Abnormal result of other cardiovascular function study; I11.0 Hypertensive heart disease with heart failure; I50.9 Heart failure, unspecified; E11.9 Type 2 diabetes mellitus without complications; E66.9 Obesity, unspecified; Z68.42 Body mass index [BMI] 45.0-49.9, adult; Z79.82 Long term (current) use of aspirin; K21.9 Gastro-esophageal reflux disease without esophagitis; D64.9 Anemia, unspecified; I42.8 Other cardiomyopathies
CPT/HCPCS: 36415; 80048; 85025; 93458; 99152; C1769; C1887; C1894; J1644; J2250; J3010; J3490; J7030; J9999; Q0163; Q9967